=== PATIENT | female | born 1980 | race Caucasian/White ===

== ENCOUNTER 2022-07-31 12:55 | Emergency (ER) | payer BC ==
[~2022-07-31] VITALS: Ht 157.5 cm; Wt 72.6 kg
[2022-07-31] MEDS ORDERED: ROSU20TA2 PO (13:03)
[2022-07-31] MEDS ORDERED: VERAPAMIL (13:03)
[2022-07-31] MEDS ORDERED: LORAZEPAM (13:03)
--- NOTE | 2022-07-31 13:33 | NUR ---
Pt arrived in the ED w/ c/o chest pain, 09/09, non-radiating, happened early in the morning while doing errands - per pt. Pt stated that she has a hx of HLD and HTN. Seen by Dr. Rossi for MSE.
--- NOTE | 2022-07-31 13:40 | NUR ---
BP 165/59, pt takes Verapamil for her HBP but doesn't know the dosage ( doesn't know either), stated that she's "a little dizzy", denies vision changes, denies headach, n/v. notified.
[2022-07-31 13:49] LABS: CARBON DIOXIDE 26 mmol/L (21-32); CHLORIDE 101 mmol/L (98-107); GLUCOSE 101 mg/dL (74-106); POTASSIUM 3.3 mmol/L (3.5-5.1); UREA NITROGEN, BLOOD 16 mg/dL (7-18)
[2022-07-31 13:59] LABS: HEMATOCRIT 41.8 % (31.2-41.9); MEAN CORPUSCULAR HEMOGLOBIN 30.5 uug (24.7-32.8); PLATELET COUNT (AUTO) 203 K/uL (179-408)
--- NOTE | 2022-07-31 15:30 | NUR ---
Patient discharged to home in stable condition. Written and verbal after care instructions given. Patient verbalizes understanding of instructions. Stressed follow up or return to ER for worsening s/s.
[2022-07-31 15:31] VITALS: BP 120/75
== END 2022-07-31 15:30 | disposition home or self-care (01) ==
LOC: ER 12:58
DX: R07.89 Other chest pain (principal); F41.9 Anxiety disorder, unspecified; I10 Essential (primary) hypertension; E78.00 Pure hypercholesterolemia, unspecified; Z79.899 Other long term (current) drug therapy
CPT/HCPCS: 36415; 71045; 84484; 85025; 93005; A4663